=== PATIENT | female | born 1960 | race Caucasian/White ===

== ENCOUNTER → 2017-09-10 | Outpatient (CLI) | payer OTHER ==
--- NOTE | 2017-09-10 16:21 | RAD ---
Thyroid ultrasound, 09/10/2017: History: Thyroid nodule No previous studies are available at this time for comparison purposes. The right lobe of the gland measures 5.3 x 1.4 x 1.4 cm while the left lobe of the gland measures 4.9 x 2.3 x 3.1 cm. There is a dominant 3.9 x 2.2 x 2.8 cm mass in the left lobe of the gland. It is a heterogeneous mass with mixed solid and cystic spongiform components. Its margins appear smooth. It is wider than tall. No calcifications are evident. A tiny 5 mm cyst is noted medially in the upper pole of the right lobe of the gland. No other thyroid lesion is identified. IMPRESSION: Dominant mixed cystic and solid left thyroid nodule as described above. Reportedly this lesion has been previously biopsied. Correlation with previous ultrasound images and the prior pathology report is suggested.
== END | disposition home or self-care (01) ==
LOC: US 12:37
PROVIDERS: ATTEND Family Medicine
DX: E04.1 Nontoxic single thyroid nodule (principal)
CPT/HCPCS: 76536

== ENCOUNTER 2019-03-28 11:35 | Observation (INO) | payer OTHER ==
[~2019-03-28] VITALS: Ht 177.8 cm; Wt 96.8 kg
[2019-03-28 12:35] LABS: BASO # 0.1 x10^3/uL (0.0-0.2); BASO % 1 % (0-3); EOS # 0.1 x10^3/uL (0.0-0.7); EOS % 1 % (0-3); HEMATOCRIT 41.4 % (36.0-47.0); HEMOGLOBIN 14.2 g/dL (12.0-15.5); LYMPH # 2.1 x10^3/uL (1.0-4.8); LYMPH % 23 % (24-48); MEAN CORPUSCULAR HEMOGLOBIN 32 pg (25-35); MEAN CORPUSCULAR HGB CONC 34 g/dL (31-37); MEAN CORPUSCULAR VOLUME 92 fL (79-100); MONO # 0.9 x10^3/uL (0.0-1.1); MONO % 10 % (0-9); NEUT # 5.9 x10^3uL (1.8-7.7); NEUT % 65 % (31-73); PLATELET COUNT 232 x10^3/uL (140-400); RED BLOOD COUNT 4.51 x10^6/uL (3.50-5.40); RED CELL DISTRIBUTION WIDTH 13.5 % (11.5-14.5); WHITE BLOOD COUNT 9.1 x10^3/uL (4.0-11.0)
[2019-03-28 12:47] LABS: ALBUMIN/GLOBULIN RATIO 1.1 (1.0-1.7); CALCIUM 9.4 mg/dL (8.5-10.1); CREATININE 0.7 mg/dL (0.6-1.0); GFR 85.6; POTASSIUM 4.3 mmol/L (3.5-5.1); TOTAL BILIRUBIN 0.5 mg/dL (0.2-1.0); TOTAL PROTEIN 7.8 g/dL (6.4-8.2)
--- NOTE | 2019-03-28 12:56 | RAD ---
EXAM: PA and Lateral Views of the Chest DATE: 03/28/2019 11:55 AM INDICATION: Chest pain COMPARISON: No Prior FINDINGS: The heart is not enlarged. Mediastinal and hilar contours are normal. No focal parenchymal airspace opacity. No pleural effusion or pneumothorax. IMPRESSION: 1. No radiographic evidence for acute cardiopulmonary process. Electronically signed by: Jeremie Charles MD (03/28/2019 12:53 PM) [id number]
--- NOTE | 2019-03-28 13:24 | PHYS DOC ---
Past History Past Medical History: Asthma, GERD Past Surgical History: , Hysterectomy, Other Additional Past Surgical Histo: Hernia repair x2, tummy tuck Alcohol Use: None Drug Use: None Adult General Chief Complaint Chief Complaint: Palpitations HPI HPI 58-year-old female presents with palpitations for several days. Patient was seen by her PCP, Dr. Snyder and he advised that she go to [facility] she went by ambulance for chest pain. She was placed in the waiting room for 2 hours and then left without being seen. She went to the office again today and they advised that she come here for chest pain rule out and admission for further evaluation for palpitations. Patient describes the palpitations as a fluttering feeling with an occasional hard kick. They come and go throughout the day without any pattern. She is not haven't been this persistent in the past. She has some mild shortness of breath. She denies fever or chills. Review of Systems Review of Systems Constitutional: Denies fever or chills [] Eyes: Denies change in visual acuity, redness, or eye pain [] HENT: Denies nasal congestion or sore throat [] Respiratory: shortness of breath [] Cardiovascular: No additional information not addressed in HPI [] GI: Denies abdominal pain, nausea, vomiting, bloody stools or diarrhea [] : Denies dysuria or hematuria [] Musculoskeletal: Denies back pain or joint pain [] Integument: Denies rash or skin lesions [] Neurologic: Denies headache, focal weakness or sensory changes [] Endocrine: Denies polyuria or polydipsia [] All other systems were reviewed and found to be within normal limits, except as documented in this note. Physical Exam Physical Exam Constitutional: Well developed, well nourished, no acute distress, non-toxic ap pearance. [] HENT: Normocephalic, atraumatic, bilateral external ears normal, oropharynx moist, no oral exudates, nose normal. [] Eyes: PERRLA, EOMI, conjunctiva normal, no discharge. [] Neck: Normal range of motion, no tenderness, supple, no stridor. [] Cardiovascular:Heart rate regular rhythm, no murmur [] Lungs & Thorax: Bilateral breath sounds clear to auscultation [] Abdomen: Bowel sounds normal, soft, no tenderness, no masses, no pulsatile masses. [] Skin: Warm, dry, no erythema, no rash. [] Back: No tenderness, no CVA tenderness. [] Extremities: No tenderness, no cyanosis, no clubbing, ROM intact, no edema. [] Neurologic: Alert and oriented X 3, normal motor function, normal sensory function, no focal deficits noted. [] Psychologic: Affect normal, judgement normal, mood normal. [] Current Patient Data Vital Signs Vital Signs Date Time Temp Pulse Resp B/P (MAP) Pulse Ox O2 Delivery O2 Flow Rate FiO2 03/28/19 12:05 98.2 90 18 96 Room Air Lab Results Laboratory Tests Test 03/28/19 12:05 White Blood Count 9.1 x10^3/uL (4.0-11.0) Red Blood Count 4.51 x10^6/uL (3.50-5.40) Hemoglobin 14.2 g/dL (12.0-15.5) Hematocrit 41.4 % (36.0-47.0) Mean Corpuscular Volume 92 fL (79-100) Mean Corpuscular Hemoglobin 32 pg (25-35) Mean Corpuscular Hemoglobin Concent 34 g/dL (31-37) Red Cell Distribution Width 13.5 % (11.5-14.5) Platelet Count 232 x10^3/uL (140-400) Neutrophils (%) (Auto) 65 % (31-73) Lymphocytes (%) (Auto) 23 % (24-48) L Monocytes (%) (Auto) 10 % (0-9) H Eosinophils (%) (Auto) 1 % (0-3) Basophils (%) (Auto) 1 % (0-3) Neutrophils # (Auto) 5.9 x10^3uL (1.8-7.7) Lymphocytes # (Auto) 2.1 x10^3/uL (1.0-4.8) Monocytes # (Auto) 0.9 x10^3/uL (0.0-1.1) Eosinophils # (Auto) 0.1 x10^3/uL (0.0-0.7) Basophils # (Auto) 0.1 x10^3/uL (0.0-0.2) Sodium Level 141 mmol/L (136-145) Potassium Level 4.3 mmol/L (3.5-5.1) Chloride Level 103 mmol/L (98-107) Carbon Dioxide Level 29 mmol/L (21-32) Anion Gap 9 (6-14) Blood Urea Nitrogen 15 mg/dL (7-20) Creatinine 0.7 mg/dL (0.6-1.0) Estimated GFR (Cockcroft-Gault) 85.6 BUN/Creatinine Ratio 21 (6-20) H Glucose Level 108 mg/dL (70-99) H Calcium Level 9.4 mg/dL (8.5-10.1) Total Bilirubin 0.5 mg/dL (0.2-1.0) Aspartate Amino Transferase (AST) 30 U/L (15-37) Alanine Aminotransferase (ALT) 48 U/L (14-59) Alkaline Phosphatase 64 U/L (46-116) Troponin I Quantitative < 0.017 ng/mL (0-0.055) OC-Cvp-K-Type Natriuretic Peptide 72 pg/mL (0-124) Total Protein 7.8 g/dL (6.4-8.2) Albumin 4.0 g/dL (3.4-5.0) Albumin/Globulin Ratio 1.1 (1.0-1.7) EKG EKG Sinus rhythm, rate 86, normal axis, no ST elevations or depressions.[] Radiology/Procedures Radiology/Procedures [] Impressions: EXAM: PA and Lateral Views of the Chest DATE: 03/28/2019 11:55 AM INDICATION: Chest pain COMPARISON: No Prior FINDINGS: The heart is not enlarged. Mediastinal and hilar contours are normal. No focal parenchymal airspace opacity. No pleural effusion or pneumothorax. IMPRESSION: 1. No radiographic evidence for acute cardiopulmonary process. Electronically signed by: Jeremie Champion MD (03/28/2019 12:53 PM) [id number] DICTATED AND SIGNED BY: JEREMIE CHAMPION MD DATE: 03/28/19 2641 CC: AYDEN SHRESTHA DO; CUCA OSPINA MD ~ Course & Med Decision Making Course & Med Decision Making Pertinent Labs and Imaging studies reviewed. (See chart for details) The patient's EKG is unremarkable. Her labs are unremarkable. Her troponin is negative. Chest x-ray is unremarkable. I will admit the patient to Dr. Bailey for chest pain rule out. He has agreed to admission. [] Dragon Disclaimer Dragon Disclaimer This electronic medical record was generated, in whole or in part, using a voice recognition dictation system. Departure Departure: Impression: Primary Impression: Palpitations Additional Impression: SOB (shortness of breath) Disposition: ADMITTED INPATIENT Admitting Physician: Charlie Bailey Condition: STABLE Referrals: CUCA OSPINA MD (PCP) Problem Qualifiers AYDEN SHRESTHA DO Mar 28, 2019 13:24
[2019-03-28] MEDS ORDERED: cloNIDine HCL 0.1 MG TABLET PO ONE (13:30)
[2019-03-28] MEDS ORDERED: KETOROLAC 30 MG/ML VIAL. IV ONE (13:30)
--- NOTE | 2019-03-28 14:57 | EKG ---
[address] [address] Test Date: 2019-03-28 Test Time: 11:52:23 Pat Name: FEMI LENZ Department: Room: 123 A Gender: F Middle Stitcher: TEMITOPE : 1960 Requested By: AYDEN SHRESTHA Order Number: [id number] Reading MD: Yuan Cruz MD Measurements Intervals [place] Rate: 86 P: 45 AL: 120 QRS: 17 QRSD: 90 T: 41 QT: 354 QTc: 427 Interpretive Statements SINUS RHYTHM Electronically Signed On 04-08-2019 10:05:25 CDT by Yuan Cruz MD
[2019-03-28 15:05] VITALS: BP 168/74
[2019-03-28] MEDS ORDERED: ACETAMINOPHEN 325 MG TABLET PO PRN (15:30)
[2019-03-28] MEDS ORDERED: OMEP20TA63 PO (16:31)
--- NOTE | 2019-03-28 16:34 | NUR ---
NSG NOTE; ADMISSION ADMIT TO ROOM 123 AT 1450 FROM ED VIA CART ACCOMP BY EMS PERSONNEL AND C/O CHEST PALP X5 DAYS. STATES HAD ABNORMAL EKG AT DR OSPINA'S OFFICE AND WAS SENT TO THE ED
--- NOTE | 2019-03-28 16:43 | NUR ---
NSG NOTE; DR STRATTON CONSULT CALLED TO HUGH MOHAN AT [facility] WHO STATED THE MD WILL ROUND ON THE PT IN THE AM
--- NOTE | 2019-03-28 16:59 | HP ---
ADMIT DATE: 03/28/2019 HISTORY OF PRESENT ILLNESS: The patient is a 58-year-old female patient who apparently was seen initially as she went to her primary care physician, Dr. Abdul with palpitation and he advised her to go to [facility] where she went by ambulance for chest pain. She was placed in the waiting room for 2 hours and then left without being seen. She went to the office again today and they advised her that she should come to Emergency Room of [facility] and to be admitted for further evaluation of her palpitation. The patient describing her palpitations as fluttering feeling with occasional heart click and they come and go throughout the day without any pattern. She did not have it persistent in the past. She does have mild shortness of breath during these episodes. She denied any nausea or vomiting. Denied any diaphoresis. She also feels dizzy. She has never had these symptoms before and has never seen a patient relations specialist. PAST MEDICAL HISTORY: Significant for hypertension, although her blood pressure has always been high, but never been on any treatment. She also said that she has hyperlipidemia, goiter, bronchial asthma, osteoarthritis/rheumatoid arthritis, has gastroesophageal reflux disease and gastric ulcer. PAST SURGICAL HISTORY: Significant for two C-sections, 2 hernia repairs, total abdominal hysterectomy. She also had esophagogastroduodenoscopy and colonoscopy. ALLERGIES: She has no known drug allergies. MEDICATIONS: She is on Prilosec 20 mg once a day. FAMILY HISTORY: Has 1 older brother who has coronary artery disease, underwent a coronary artery bypass graft x 3 when he was 57 years old, he is now 61 years old. Her father at age of 78 because of COPD. He did have myocardial infarction x 2 and underwent percutaneous coronary intervention x 2, had also peripheral vascular disease and left below knee amputation. Her mother is still alive at age of 82, is known to have hypertension, pulmonary emboli and congestive heart failure. SOCIAL HISTORY: She is for the last 39 years, has 2 daughters and 2 sons. She quit smoking about 6 years ago. She used to smoke a pack a day and was smoked for almost 30 years. She also used to be a heavy drinker, she quit 6 years ago. She does not use any drugs. 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 REVIEW OF SYSTEMS: The patient denied any blurring of vision, cataract, glaucoma or macular degeneration. Denied any earache, tinnitus or sensorineural deafness. Denied any nosebleeds, stuffy nose or postnasal drip. Denied any sore throat, sore tongue, toothache, hoarseness of voice or difficulty swallowing. Denied any nausea, vomiting, diarrhea or constipation. Denied any hematemesis, melena or hematochezia. Denied any dysuria, frequency or hematuria. Denied any chest pain. Did complain of mild shortness of breath during episodes of palpitation as well as dizziness. Denied any syncopal episode or fall. PHYSICAL EXAMINATION: GENERAL: On examining her, she was sitting comfortably in her chair, in no apparent respiratory distress. She was slightly pale, but no jaundice, cyanosis or thyromegaly. No jugular venous distension. No limb edema. VITAL SIGNS: Her heart rate was 87. Her blood pressure was 168/74, temperature was 98.1, respiratory rate 20, and oxygen saturation was 95%. HEAD, EYES, EARS, NOSE AND THROAT: Showed normocephalic, atraumatic. NECK: Supple. HEART: Showed normal first and second heart sounds. No gallop or murmur. CHEST: Clear to auscultation. No crepitation or rhonchi. ABDOMEN: Slightly distended, soft, nontender. No guarding or rigidity. No organomegaly. All hernial orifice intact. Bowel sounds normal. NEUROLOGIC: She is awake, alert, responding appropriately. All cranial nerves intact. EXTREMITIES: She moves extremities without difficulty. She ambulates without assistance or assistive devices. LABORATORY DATA: While in the Emergency Room, she had an EKG, which showed that she was in normal sinus rhythm. Her lab work showed a white cell count of 9100, hemoglobin 14, hematocrit 41, MCV 92, and platelet count of 232,000. Her chemistry showed a serum sodium 141, potassium 4.3, chloride 103, bicarbonate 29, anion gap of 9, BUN 15, creatinine 0.7, estimated GFR was 85 mL per minute. Her glucose was 108, calcium was 9.4. Total bilirubin, AST, ALT, alkaline phosphatase were normal. Total protein was 7.8, and albumin was 4. Her chest x-ray showed that the heart is not enlarged. Mediastinal hilar contours are normal. No focal parenchymal airspace opacity. No pleural effusion or pneumothorax. ASSESSMENT AND PLAN: The patient will be monitored continuously. We will consult the cardiology team. We will do 2 more sets of cardiac enzyme. I will check her thyroid function test and we will decide on further management accordingly. SUE ESQUIVEL MD DR: ANTONETTE/alice JOB#: [id number] / [id number]
[2019-03-28] MEDS: METOPROLOL TART IMMED RELEASE 25 MG TABLET PO SCH ×2 (18:06→21:00)
[2019-03-28 19:37] VITALS: BP 162/79
[2019-03-28 22:33] VITALS: BP 156/71
--- NOTE | 2019-03-29 02:01 | NUR ---
pts 21:00 lopressor was given at 16:06 because her blood pressure was elevated
[2019-03-29 05:19] VITALS: BP 153/79
[2019-03-29] MEDS ORDERED: PANTOPRAZOLE 40 MG TABLET. PO SCH (07:30)
[2019-03-29] MEDS: METOPROLOL TART IMMED RELEASE 25 MG TABLET PO SCH (09:26)
[2019-03-29 10:33] VITALS: BP 162/75
--- NOTE | 2019-03-29 11:09 | NUR ---
paged Dr Sanchez to confirm he has consult for this patient. Discharge is pending cardiology consult.
--- NOTE | 2019-03-29 11:21 | NUR ---
Dr. Sanchez called, he was not aware of consult. He will be in this afternoon to see patient.
[2019-03-29 11:35] LABS: THYROID STIM HORMONE (TSH) 2.959 uIU/mL (0.358-3.740)
--- NOTE | 2019-03-29 12:29 | PN ---
DATE: 03/29/2019 SUBJECTIVE: The patient is sitting comfortably in her chair, in no apparent respiratory distress. On questioning her, she denied any complaints, stated that she has not had any palpitation today and her blood pressure seems to be somewhat much improved today. PHYSICAL EXAMINATION: GENERAL: When I examined her, she looked well and was clearly in no apparent respiratory distress. No pallor, jaundice, cyanosis or thyromegaly. No jugular venous distention. No limb edema. VITAL SIGNS: Her heart rate was 67, blood pressure was 153/79, temperature was 97.6, respiratory rate 20, and oxygen saturation was 96% on room air. HEAD, EYES, EARS, NOSE AND THROAT: Normocephalic, atraumatic. NECK: Supple. HEART: Showed normal first and second heart sounds. No gallop or murmur. CHEST: Clear to auscultation. No crepitation or rhonchi. ABDOMEN: Distended, soft, nontender. NEUROLOGIC: She was awake, alert. All her cranial nerves intact. She moves extremities without difficulty. She ambulates without assistance or assistive devices. LABORATORY DATA: Showed that she has 3 sets of cardiac enzymes that ruled out myocardial infarction. Her hemoglobin was 14, hematocrit 41 with normal white cell count and platelets. Her chemistry showed a BUN of 15, creatinine 0.7 and estimated GFR was 86 mL per minute. Her TSH and fasting lipid profile is still pending. ASSESSMENT: 1. A 58-year-old female patient who was admitted with recurrent episodes of palpitation. 2. Hypertension, although the patient is not on any treatment. 3. Hyperlipidemia. 4. Goiter. 5. Bronchial asthma. 6. Osteoarthritis, rheumatoid arthritis. 7. Gastroesophageal reflux disease and gastric ulcer. PLAN: I did start her on metoprolol 25 mg twice a day. We are waiting for the TSH and fasting lipid profile and also Cardiology evaluation as she probably requires event monitor as an outpatient. SUE ESQUIVEL MD DR: ANTONETTE/alice JOB#: [id number] / [id number]
[2019-03-29 14:53] VITALS: BP 125/72
[2019-03-29] MEDS ORDERED: METO25TA4 PO (15:10)
--- NOTE | 2019-03-29 15:18 | NUR ---
DISCONTINUE IV AND TELE. PT UNDERSTANDS ALL FOLLOW UP ORDERS. WILL CONTINUE TO ASSESS.
--- NOTE | 2019-03-31 09:53 | PDOC2 ---
CONSULT Date of Admission DATE: 03/31/19 TIME: 09:47 The patient was seen and examined on 03/29/19 Reason for Consult: Palpitations Referring Physician: Dr. Bailey Chief Complaint Palpitations Source: Chart review, Patient Problem List Problems Medical Problems: (1) Palpitations Status: Acute (2) SOB (shortness of breath) Status: Acute History of Present Illness The patient is a 58-year-old female who was admitted through the emergency room for episodes of palpitations in the past 4-5 days. These appear to be relatively random. They were not associated with dizziness, lightheadedness or loss of consciousness. He reports a distant history of similar but much less frequent palpitations. Initial EKG showed a sinus rhythm with no ischemic changes. She also reported some episodes of periodic shortness of breath and episodes of chest discomfort which were not associated with the palpitations. She has been monitored overnight. She has remained in a sinus rhythm. Troponins have been negative 3. Chest x-ray shows no acute changes. Cardiovascular: HTN Pulmonary: Asthma GI: GERD Past Surgical History: , Hernia Repair Family History: Coronary Artery Disease, Hypertension Smoke: Quit ALCOHOL: other (previous reported heavy use of EtOH) Current Medications Current Medications Clonidine HCl (Catapres) 0.1 mg 1X ONCE PO Last administered on 03/28/19at 14:06; Start 03/28/19 at 13:30; Stop 03/28/19 at 13:47; Status DC Ketorolac Tromethamine (Toradol 30mg Vial) 30 mg 1X ONCE IV Last administered on 03/28/19at 14:07; Start 03/28/19 at 13:30; Stop 03/28/19 at 13:47; Status DC Acetaminophen (Tylenol) 650 mg PRN Q6HRS PRN PO PAIN / TEMP Last administered on 03/28/19at 16:00; Start 03/28/19 at 15:30; Stop 03/29/19 at 15:20; Status DC Metoprolol Tartrate (Lopressor) 25 mg BID PO Last administered on 03/29/19at 09:26; Start 03/28/19 at 18:00; Stop 03/29/19 at 15:20; Status DC Pantoprazole Sodium (Protonix) 80 mg DAILYAC PO Last administered on 03/29/19at 09:26; Start 03/29/19 at 07:30; Stop 03/29/19 at 15:20; Status DC Active Scripts Active Reported Metoprolol Tartrate 25 Mg Tablet 25 Mg PO BID Prilosec Otc (Omeprazole Magnesium) 20 Mg Tablet. 4 Tab PO DAILY Allergies: Coded Allergies: No Known Drug Allergies (Unverified , 03/28/19) Respiratory: YES: Shortness of breath Cardiovascular: yes: Palpitations General: No acute distress HEENT: Atraumatic Lungs: Clear to auscultation Heart: Regular rate Abdomen: Normal bowel sounds VITALS Vital Signs Date Time Temp Pulse Resp B/P (MAP) Pulse Ox O2 Delivery O2 Flow Rate FiO2 03/29/19 14:53 98.0 68 20 125/72 (89) 96 Room Air Images Chest x-ray shows no acute pulmonary disease. Assessment/Plan 1. Palpitations. Patient has been stable overnight. She has been started on beta nayeli for palpitations. She feels well today. She is ruled out for myocardial infarction and has no acute changes on her chest x-ray. At this time will continue her on her beta blockers. From a cardiac viewpoint she may go home later today. We will contact the patient post discharge for office follow-up and placement of an outpatient monitor. Of note the patient's TSH is normal at 2.9. 2. Shortness of breath. Resolved. Chest x-ray and physical examination are clear. Continue present treatment. 3. Hypertension. Fair control. Beta blockers as above. 4. Hyperlipidemia. LDL level of 136 HDL 36. Discussed better diet with the patient. At this time we will defer starting a statin medication to lower follow-up visit. Thank you for allowing us to participate in the care of your patient. ALEJO REED MD Mar 31, 2019 09:53
== END 2019-03-29 15:19 | disposition home or self-care (01) ==
LOC: ER 11:35 → 1 SOUTH 14:00
PROVIDERS: ADMIT Internal Medicine; ATTEND Internal Medicine
DX: R00.2 Palpitations (principal); J45.909 Unspecified asthma, uncomplicated; K21.9 Gastro-esophageal reflux disease without esophagitis; R42 Dizziness and giddiness; E78.5 Hyperlipidemia, unspecified; E04.9 Nontoxic goiter, unspecified; K25.9 Gastric ulcer, unspecified as acute or chronic, without hemorrhage or perforation; I10 Essential (primary) hypertension; M19.90 Unspecified osteoarthritis, unspecified site; M06.9 Rheumatoid arthritis, unspecified; Z82.49 Family history of ischemic heart disease and other diseases of the circulatory system; Z82.5 Family history of asthma and other chronic lower respiratory diseases; Z90.710 Acquired absence of both cervix and uterus; Z87.11 Personal history of peptic ulcer disease; Z87.891 Personal history of nicotine dependence
CPT/HCPCS: 36415; 71046; 80053; 80061; 83880; 84443; 84484; 85025; 93005; 96374; 99284; G0378; J1885; G0379